=== PATIENT | male | born 1975 | race Caucasian/White ===

== ENCOUNTER 2023-09-10 07:07 | Outpatient (CLI) | payer OTHER, SELFPAY ==
--- NOTE | 2023-09-10 07:15 | MR_ITS ---
[facility] [address] [facility] [address] Phone:?[phone] Fax:?[phone] Referring Physician Information: Justin Ward M.D. [address] [facility] [address] Phone:?[phone] Fax:?[phone] Patient:Opal Fuchs D.O.B:?1975 Sex:?Male Phone:? [facility] MRN:?[id number] Exam Date:?09/10/2023 EXAM: MRI OF THE LEFT SHOULDER CLINICAL INFORMATION: The patient is a 48-year-old with left shoulder pain. Evaluate for biceps injury. PRIOR SURGERY: None reported. COMPARISON STUDIES: Comparison is made to prior radiographs dated 08/30/2023. TECHNICAL INFORMATION: Using a 1.5T MR scanner and a localizing shoulder surface coil: 3.0 mm?coronal obliques: PD, T2, STIR 3.0 mm?sagittal obliques: PD, T2 3.0 mm?axials: PD, T2 FINDINGS: Articular/Extraarticular collections: Effusion: Mild to moderate. Subacromial/subdeltoid: Mild fluid is seen within the subacromial/subdeltoid bursa, in keeping with mild bursitis. Subcoracoid: No evidence for bursitis. Osseous structures: Proximal humerus: No evidence for bony injury to the proximal humerus can be seen. There is no evidence for greater tuberosity fracture. No Hill-Sachs or reverse Hill-Sachs deformity is seen. Glenoid: No acute bony abnormality of the glenoid fossa or glenoid neck can be seen. Acromioclavicular joint: Mild changes of acromioclavicular joint arthrosis are present. Coracoacromial arch: Acromion morphology: Type II. No evidence for os acromiale. Acromiohumeral space: Mildly narrowed. Coracohumeral space: Within normal limits. Rotator cuff and deltoid: Supraspinatus: Mild changes of supraspinatus tendinosis are present. There is no evidence for full or partial-thickness tearing. No atrophic changes of the supraspinatus muscle belly are present. Infraspinatus: Mild infraspinatus tendinosis can be seen. There is no evidence for full or partial-thickness tearing. No atrophic changes of the infraspinatus muscle belly are identified. Teres minor: No evidence for tendinosis, tearing, or associated muscle belly atrophy. Subscapularis: Mild subscapularis tendinosis can be seen. There is no evidence for full or partial-thickness tearing. No atrophic changes of the subscapularis muscle belly are noted. Deltoid: No evidence for strain or tearing. Biceps tendon: The intra-articular and biceps sulcus portions of the biceps tendon are normal. There is no evidence for rupture, dislocation, or subluxation. Glenohumeral joint and labrum: Articular Cartilage: Chondromalacia and chondral thinning along the articular surfaces of the glenohumeral articulation can be seen. No definite osteoarthritic changes are present. Labrum: Degeneration, blunting, fraying, and irregularity of the glenoid labrum can be seen without definite areas of more well-defined tearing. No paralabral ganglion cyst formation is noted. Capsular Soft Tissues: No definite capsular abnormalities of the glenohumeral joint are seen. No evidence for capsular tearing is present and there are no MR signs of adhesive capsulitis. CONCLUSION: 1. Mild supraspinatus, infraspinatus, and subscapularis tendinosis. No full or partial-thickness rotator cuff tearing is seen. 2. The long head of the biceps tendon is within normal limits. 3. Mild acromioclavicular joint arthrosis. 4. Chondromalacia and chondral thinning along the articular surfaces of the glenohumeral articulation. 5. Degeneration, blunting, fraying, and irregularity of the glenoid labrum. 6. Mild to moderate glenohumeral joint effusion and mild subacromial/subdeltoid bursitis. A[facility] Electronically signed on 09/10/2023 10:01:00 AM by Chente Alcaraz M.D.
== END 2023-09-10 07:08 | disposition home or self-care (01) ==
LOC: MRI 07:07
PROVIDERS: PCP Family Medicine; Visit Provider Orthopaedic Surgery Sports Medicine
DX: M25.512 Pain in left shoulder (principal); M19.012 Primary osteoarthritis, left shoulder; M94.212 Chondromalacia, left shoulder; M25.412 Effusion, left shoulder; M75.52 Bursitis of left shoulder; S46.212A Strain of muscle, fascia and tendon of other parts of biceps, left arm, initial encounter
CPT/HCPCS: 73221